=== PATIENT | female | born 1980 | race African-American/Black ===

== ENCOUNTER 2017-06-12 04:07 | Emergency (ER) | payer MEDICAID ==
[~2017-06-12] VITALS: Ht 172.7 cm; Wt 63.5 kg
--- NOTE | 2017-06-12 04:19 | NUR ---
initiail assessment: pt came from home, c/o dyspnea/azthma attack, a/o x 4, audible wheezing heard, wheezing heard over posterior lung banks, O2 93% on RA, applied oxygen via nasal canula @ 2L, increase O2 sat 97%. skin color normal to ethnicity, cap refill instant, no c/o pain at this time. states "i ran out of my emergency medication"
[2017-06-12] MEDS ORDERED: ALBUTEROL FS 2.5 MG/0.5 ML VIAL.NEB ONE (04:20)
--- NOTE | 2017-06-12 04:22 | NUR ---
RT and XR bedside at this time for treatment.
[2017-06-12] MEDS ORDERED: ALBUTEROL FS 2.5 MG/0.5 ML VIAL.NEB NEB ONE (04:30)
--- NOTE | 2017-06-12 04:33 | NUR ---
post breathing tx: pt still with expiratory wheezing heard over posterior lung field, ER MD Cuellar aware.
[2017-06-12 04:40] VITALS: BP 112/75
== END 2017-06-12 04:19 | disposition home or self-care (01) ==
LOC: ER 04:12
DX: J45.901 Unspecified asthma with (acute) exacerbation (principal)
CPT/HCPCS: 71010; 94640; 99283; A4606; Z7610